=== PATIENT | female | born 1995 | race Native Hawaiian/Other Pacific Islander ===

== ENCOUNTER 2019-01-28 08:28 | Outpatient (CLI) | payer OTHER | END 2019-01-28 22:15 | disposition home or self-care (01) | LOC: US 08:28 | DX: R10.11 Right upper quadrant pain (principal) ==

== ENCOUNTER 2019-02-02 12:54 | Outpatient (CLI) | payer OTHER | END 2019-02-02 21:58 | disposition home or self-care (01) | LOC: NM 12:54 | DX: R10.11 Right upper quadrant pain (principal) | CPT/HCPCS: A9537 ==

== ENCOUNTER 2019-03-08 14:09 | Day surgery (SDC) | payer OTHER, BC ==
[2019-03-08 14:40] LABS: PLATELET COUNT 271 K/uL (152-353)
[2019-03-08 14:54] LABS: POTASSIUM 3.5 mmol/L (3.6-5.2)
== END 2019-03-08 14:30 | disposition home or self-care (01) ==
LOC: OR 14:09
PROVIDERS: Surgery
DX: K81.1 Chronic cholecystitis (principal); R10.11 Right upper quadrant pain; R11.0 Nausea; Z53.8 Procedure and treatment not carried out for other reasons
CPT/HCPCS: 36415; 80053; 81025; 85027; 86850; 86900; 86901; J0132; J1100; J1170; J3010

== ENCOUNTER 2019-03-09 07:46 | Day surgery (SDC) | payer OTHER, BC | END 2019-03-09 14:22 | disposition home or self-care (01) | LOC: OR 07:46 | PROC: 0FT44ZZ Resection of Gallbladder, Percutaneous Endoscopic Approach (ICD-10-PCS; principal; 2019-03-09) | DX: K81.1 Chronic cholecystitis (principal); R10.11 Right upper quadrant pain; R11.0 Nausea | CPT/HCPCS: J0330; J0690; J1885; J2001; J2250; J2405; J2704; J2710; J3490 ==

== ENCOUNTER 2022-05-23 08:47 | Outpatient (CLI) | payer BC | END 2022-05-23 22:49 | disposition home or self-care (01) | LOC: US 08:47 | DX: R22.1 Localized swelling, mass and lump, neck (principal) ==

== ENCOUNTER 2022-05-29 08:27 | Outpatient (CLI) | payer BC | END 2022-05-29 17:00 | disposition home or self-care (01) | LOC: CT 08:27 | DX: R22.1 Localized swelling, mass and lump, neck (principal) | CPT/HCPCS: Q9963 ==